=== PATIENT | male | born 1970 ===

== ENCOUNTER 2018-06-10 08:01 | Emergency (ER) | payer SELFPAY ==
--- NOTE | 2018-06-10 08:01 | EDPHY ---
H & P Time Seen by Provider: 06/10/18 08:01 HPI/ROS: CHIEF COMPLAINT: 10 min seizure HISTORY OF PRESENT ILLNESS: Patient brought in by EMS emergent, they were called to unresponsive man lying next to a bench. He was relatively stiff when they found him but no evidence of external trauma. Lying next to a bench near [place] bus stop. Patient was nonverbal, had 10 min of seizure, was given IM Versed. Further history and review of systems unable as the patient is nonverbal on arrival. PAST MEDICAL HISTORY: Unable, nonverbal on arrival Social history: Unable, nonverbal on arrival General Appearance: Patient is obtunded. Eyes: Patient has a right gaze preference but pupils 3 mm reactive. ENT, Mouth: Normal mucous membranes. Respiratory: Decreased respiratory effort, rhonchi bilaterally. Cardiovascular: Regular rate and rhythm. Tachycardic. Gastrointestinal: Abdomen is soft and non tender. Neurological: Patient obtunded, not seizing, does not have spontaneous movement in any extremity. Skin: No lacerations or abrasions. Musculoskeletal: No extremity step-off or deformity, no spinal deformity. Psychiatric: Unable, nonverbal Emergency Department course/MDM: Patient was observed on face mask oxygen with saturation in the low 80s, intubated for airway protection and hypoxemia, please see procedure note. No external evidence of face or head or neck trauma on examination. Propofol drip started in the ED. Keppra [address] head for seizure with unknown cause, history unobtainable. EKG shows some repolarization abnormalities with tachycardia, troponin sent. Fentanyl 100 mcg IV after intubation. 855: [facility] per [facility] shows lucency lateral mass C1, unknown if new or old, no displacement or canal/cord compromise. Collar placed. Per hospitalist service, consult neurology. 918: Accepted at [facility], Dr. Silvestre, critical care transport. Discussed with Dr. Pierre from Neurology at this time who recommends transfer to a facility with continuous EEG monitoring. Constitutional: Initial Vital Signs Temperature (C) 35.9 C L 06/10/18 08:01 Heart Rate 144 H 06/10/18 08:01 Respiratory Rate 14 06/10/18 08:01 Blood Pressure 158/104 H 06/10/18 08:01 O2 Sat (%) 85 L 06/10/18 08:01 O2 Delivery Mode Ventilator O2 (L/minute) 15 Medical Decision Making - Diagnostics EKG Interpretation: 12-lead EKG interpreted by me; official reading is in computer system. My interpretation is sinus tachycardia rate 161 with diffuse repolarization abnormalities. Imaging Results: Imaging Impressions Cervical Spine CT 06/10/18 08:16 Impression: 1. No acute intracranial process. 2. Lucency through the right anterolateral mass of C1 is nonspecific without the benefit of comparison imaging. This may represent a new undisplaced fracture. Findings and recommendations discussed with LEIDA PETTIT at 855 hour, 06/10/2018. Head CT 06/10/18 08:16 Impression: 1. No acute intracranial process. 2. Lucency through the right anterolateral mass of C1 is nonspecific without the benefit of comparison imaging. This may represent a new undisplaced fracture. Findings and recommendations discussed with LEIDA PETTIT at 855 hour, 06/10/2018. Chest X-Ray 06/10/18 08:17 Impression: 1. Status post intubation. 2. Probable subacute and/or old rib fracture deformities. There is no evidence of a pneumothorax. 3. Mild peribronchial thickening with some left basilar subsegmental atelectasis. Imaging: I viewed and interpreted images myself Procedures: Indication for the procedure was hypoxia and inability to protect airway. The patient was preoxygenated with 100% oxygen by face mask. The patient was sedated with Versed and paralyzed with rocuronium. The patient was orally endotracheally intubated under direct visualization with a 8.0 ETT. Tracheal intubation was confirmed with misting on the tube; breath sounds were auscultated equally bilaterally; appropriate color change with [place] Tidal CO2 detector, capnography waveform is appropriate, oxygen saturation after procedure is greater than 90%. Chest X-ray shows ETT in good position. The procedure was performed by myself. Differential Diagnosis: Differential diagnosis considered for a seizure including but not limited to electrolyte abnormality, alcohol withdrawal, medication noncompliance, head injury, and breakthrough seizure. Consult/Admit Bed Type: [facility], Dr. Silvestre admits to neuro ICU at 916 Critical Care Time: Critical care time spent by me, Dr. Pettit, exclusively with the care of this patient was 40 minutes, exclusive of PA or COMPUTER OPERATIONS ANALYST time and exclusive of separate procedures. The organ system at risk was neurologic and I ordered IV anticonvulsants, sedation with propofol drip, multiple diagnostics, serial exam to stabilize the patient and prevent worsening of the patient's condition. - Data Points Laboratory Results: Laboratory Results 06/10/18 08:05 06/10/18 08:05 06/10/18 06/10/18 06/10/18 09:13 08:12 08:05 WBC 10.34 10^3/uL H 10^3/uL (3.80-9.50) RBC 4.03 10^6/uL L 10^6/uL (4.40-6.38) Hgb 14.8 g/dL g/dL (13.7-17.5) POC Hgb 16.3 gm/dL gm/dL (13.7-17.5) Hct 45.7 % % (40.0-51.0) POC Hct 48 % % (40-51) MCV 113.4 fL H fL (81.5-99.8) MCH 36.7 pg H pg (27.9-34.1) MCHC 32.4 g/dL g/dL (32.4-36.7) RDW 12.6 % % (11.5-15.2) Plt Count 226 10^3/uL 10^3/uL (150-400) MPV 10.0 fL fL (8.7-11.7) Neut % (Auto) Not Reported Lymph % (Auto) Not Reported [place] % (Auto) Not Reported Eos % (Auto) Not Reported Baso % (Auto) Not Reported Nucleat RBC Rel Count Not Reported Absolute Neuts (auto) Not Reported Absolute Lymphs (auto) Not Reported Absolute Monos (auto) Not Reported Absolute Eos (auto) Not Reported Absolute Basos (auto) Not Reported Absolute Nucleated RBC Not Reported Immature Gran % Not Reported Seg Neutrophils % 50.0 % % Band Neutrophils % 0.0 % % Lymphocytes % 33.0 % % Monocytes % 12.0 % % Eosinophils % 4.0 % % Basophils % 1.0 % % Metamyelocytes % 0.0 % % Myelocytes % 0.0 % % Promyelocytes % 0.0 % % Blast Cells % 0.0 % % Immature Gran # Not Reported Absolute Seg Neuts 5.17 10^/uL 10^/uL (1.70-6.50) Absolute Band Neuts 0.00 10^3/uL 10^3/uL (0.00-0.70) Absolute Lymphocytes 3.41 10^3/uL H 10^3/uL (1.00-3.00) Absolute Monocytes 1.24 10^3/uL H 10^3/uL (0.30-0.80) Absolute Eosinophils 0.41 10^3/uL H 10^3/uL (0.03-0.40) Absolute Basophils 0.10 10^3/uL 10^3/uL (0.02-0.10) Absolute Metamyelocyte 0.00 10^3/mL 10^3/mL (0.00-0.00) Absolute Myelocytes 0.00 10^3/mL 10^3/mL (0.00-0.00) Absolute Promyelocytes 0.00 10^3/uL 10^3/uL (0.00-0.00) Absolute Plasma Cells 0.00 10^3/uL 10^3/uL (0.00-0.00) Nucleated RBCs 1.0 /100 WBC H /100 WBC (0-0) RBC/WBC/PLT Morphology NORMAL (NORMAL) Absolute Blast Cells 0.00 10^3/uL 10^3/uL (0.00-0.00) Plasma Cells % 0.0 % % Platelet Estimate ADEQUATE (ADEQ) Puncture Site NONE GIVEN Patient Temperature 37.0 DEGREES DEGREES pCO2 48 mmHg H mmHg (34-38) pO2 184 mmHg H mmHg (65-75) Total CO2 22 mEq/L L mEq/L (23-27) ABG pH 7.26 L (7.35-7.45) ABG PO2/FiO2 Ratio 184 RATIO RATIO ABG HCO3 21 mEq/L L mEq/L (22-26) ABG O2 Saturation 99 % H % (92-95) ABG Base Excess -6.0 mEq/L L mEq/L (-2.5-2.5) O2 Concentration % 100 % % (0-100) Set Respiration Rate 16 SIMV YES Tidal Volume 500 End Tidal CO2 25 PEEP 5 Pressure Support 7 POC Sodium 140 mEq/L mEq/L (135-145) Sodium POC Potassium 3.5 mEq/L mEq/L (3.3-5.0) Potassium POC Chloride 104 mEq/L mEq/L (97-110) Chloride Carbon Dioxide Anion Gap POC BUN < 3 mg/dL L mg/dL (7-23) BUN Creatinine POC Creatinine 0.6 mg/dL L mg/dL (0.7-1.3) Estimated GFR Glucose POC Glucose 185 mg/dL H mg/dL (70-100) Calcium Creatine Kinase Troponin I Ethyl Alcohol 06/10/18 08:05 WBC RBC Hgb POC Hgb Hct POC Hct MCV MCH MCHC RDW Plt Count MPV Neut % (Auto) Lymph % (Auto) [place] % (Auto) Eos % (Auto) Baso % (Auto) Nucleat RBC Rel Count Absolute Neuts (auto) Absolute Lymphs (auto) Absolute Monos (auto) Absolute Eos (auto) Absolute Basos (auto) Absolute Nucleated RBC Immature Gran % Seg Neutrophils % Band Neutrophils % Lymphocytes % Monocytes % Eosinophils % Basophils % Metamyelocytes % Myelocytes % Promyelocytes % Blast Cells % Immature Gran # Absolute Seg Neuts Absolute Band Neuts Absolute Lymphocytes Absolute Monocytes Absolute Eosinophils Absolute Basophils Absolute Metamyelocyte Absolute Myelocytes Absolute Promyelocytes Absolute Plasma Cells Nucleated RBCs RBC/WBC/PLT Morphology Absolute Blast Cells Plasma Cells % Platelet Estimate Puncture Site Patient Temperature pCO2 pO2 Total CO2 ABG pH ABG PO2/FiO2 Ratio ABG HCO3 ABG O2 Saturation ABG Base Excess O2 Concentration % Set Respiration Rate SIMV Tidal Volume End Tidal CO2 PEEP Pressure Support POC Sodium Sodium 142 mEq/L mEq/L (135-145) POC Potassium Potassium 3.9 mEq/L mEq/L (3.3-5.0) POC Chloride Chloride 102 mEq/L mEq/L (97-110) Carbon Dioxide 10 mEq/l L mEq/l (22-31) Anion Gap 30 mEq/L H mEq/L (8-16) POC BUN BUN 4 mg/dL L mg/dL (7-23) Creatinine 0.7 mg/dL mg/dL (0.7-1.3) POC Creatinine Estimated GFR > 60 Glucose 186 mg/dL H mg/dL (70-100) POC Glucose Calcium 9.4 mg/dL mg/dL (8.5-10.4) Creatine Kinase 144 IU/L IU/L (0-224) Troponin I < 0.012 ng/mL ng/mL (0.000-0.034) Ethyl Alcohol < 10 mg/dL mg/dL (0-10) Medications Given: Discontinued Medications Fentanyl (Sublimaze) 100 mcg IVP EDNOW ONE Stop: 06/10/18 08:27 Last Admin: 06/10/18 08:26 Dose: 100 mcg Fentanyl (Sublimaze) 100 mcg IVP EDNOW ONE Stop: 06/10/18 09:49 Last Admin: 06/10/18 10:08 Dose: 100 mcg Propofol (Diprivan 10 Mg/Ml (Premix)) 50 mls @ 0 mls/hr IV EDNOW ONE; Titrate PRN Reason: Protocol Stop: 06/10/18 08:19 Last Admin: 06/10/18 08:18 Dose: 50 mls Levetiracetam (Keppra (Premix)) 100 mls @ 400 mls/hr IV EDNOW ONE Stop: 06/10/18 08:39 Last Admin: 06/10/18 08:39 Dose: 100 mls Midazolam HCl (Versed) 4 mg IVP EDNOW ONE Stop: 06/10/18 08:18 Last Admin: 06/10/18 08:17 Dose: 4 mg Midazolam HCl (Versed) 2 mg IVP EDNOW ONE Stop: 06/10/18 09:49 Last Admin: 06/10/18 10:08 Dose: 2 mg Rocuronium [place] (Zemuron) 100 mg IVP EDNOW ONE Stop: 06/10/18 08:18 Last Admin: 06/10/18 08:17 Dose: 100 mg Point of Care Test Results: Chemistry 06/10/18 08:12 POC Sodium 140 mEq/L mEq/L (135-145) POC Potassium 3.5 mEq/L mEq/L (3.3-5.0) POC Chloride 104 mEq/L mEq/L (97-110) POC BUN < 3 mg/dL L mg/dL (7-23) POC Creatinine 0.6 mg/dL L mg/dL (0.7-1.3) POC Glucose 185 mg/dL H mg/dL (70-100) Blood Gas/Lactic Acid-Arterial 06/10/18 09:13 Tidal Volume 500 ISTAT H&H 06/10/18 08:12 POC Hgb 16.3 gm/dL gm/dL (13.7-17.5) POC Hct 48 % % (40-51) Departure - Departure Disposition: Acute Care Hospital Not [facility] Clinical Impression: Seizure Condition: Critical Referrals: Patient,NotPresent [Primary Care Provider] - As per Instructions
[2018-06-10] MEDS ORDERED: PROPOFOL/EMULSION 1,000 MG/100 ML BOTTLE IV ONE (08:11)
[2018-06-10] MEDS ORDERED: MIDAZOLAM 2 MG/2 ML VIAL IVP ONE ×2 (08:17→09:48)
[2018-06-10] MEDS ORDERED: ROCURONIUM 100 MG/10 ML VIAL IVP ONE (08:17)
[2018-06-10] MEDS ORDERED: PROPOFOL/EMULSION 50 ML IV ONE (08:18)
[2018-06-10] MEDS ORDERED: levETIRAcetam 1000MG/NACL 100 ML IV ONE (08:25)
[2018-06-10] MEDS ORDERED: fentaNYL 100 MCG/2 ML INJ IVP ONE ×2 (08:26→09:48)
[2018-06-10 08:27] LABS: PLATELET COUNT 226 10^3/uL (150-400)
[2018-06-10 08:32] LABS: CREATINE KINASE 144 IU/L (0-224)
--- NOTE | 2018-06-10 08:42 | CPEKG ---
Test Reason : OPEN Blood Pressure : / mmHG Vent. Rate : 161 BPM Atrial Rate : 161 BPM P-R Int : 062 ms QRS Dur : 096 ms QT Int : 301 ms P-R-T Axes : 000 043 000 degrees QTc Int : 493 ms Sinus tachycardia Repol abnrm suggests ischemia, lateral leads Confirmed by Andrés Mcdowell ([id number]) on 06/10/2018 8:41:34 AM Referred By: Confirmed By:Andrés Mcdowell
[2018-06-10 10:12] VITALS: BP 127/94
[2018-06-10] MEDS ORDERED: MIDAZOLAM 2 MG/2 ML VIAL ONE (10:57)
[2018-06-10] MEDS ORDERED: ROCURONIUM 100 MG/10 ML VIAL ONE (10:57)
== END 2018-06-10 09:55 | disposition short-term general hospital (02) ==
PROC: 0BH17EZ Insertion of Endotracheal Airway into Trachea, Via Natural or Artificial Opening (ICD-10-PCS; principal; 2018-06-10)
DX: R56.9 Unspecified convulsions (principal)
CPT/HCPCS: 82435-PO; 82565-PO; 82947-PO; 84132-PO; 84295-PO; 84520-PO; 85014-PO; 96365; 96366; G0480; J1953; J2250; J2704; J3010